=== PATIENT | male | born 1950 | race Caucasian/White ===

== ENCOUNTER → 2016-06-27 | Outpatient (CLI) | payer MEDICARE, OTHER ==
[~2016-06-27] MED LIST: AMLO-320 PO; AMLO10TA PO; ASP325T PO; ASP81TEC PO; ATOR80TA75 PO; BPR150TCR PO; BUPR300T2 PO; CITA40TA19 PO; CLIN300C3 PO; CLOP75TA PO; CTLP20T PO; HCT25T PO; HYDR-3454 PO; HYDR25TA4 PO; LEVO500T69 PO; LISI1TAB8 PO; LISI20TA PO; METF-380 PO; METO100T2 PO; MTF500T PO; NFNEB10T PO; ONDA8TAB13 PO; PGLT30T PO; SIMV20TA3 PO; THIA100T7 PO; TRAM50TA2 PO; VALS1TAB15 PO
== END ==
LOC: RAD 11:49
PROVIDERS: ATTEND Nurse Practitioner Family
DX: I73.9 Peripheral vascular disease, unspecified (principal)
CPT/HCPCS: 93923

== ENCOUNTER → 2017-03-16 | Outpatient (CLI) | payer MEDICARE, OTHER | LOC: CARD 09:16 | PROVIDERS: ATTEND Nurse Practitioner Family | DX: I25.10 Atherosclerotic heart disease of native coronary artery without angina pectoris (principal); I10 Essential (primary) hypertension | CPT/HCPCS: 93306 ==

== ENCOUNTER → 2017-03-20 | Outpatient (CLI) | payer MEDICARE, OTHER ==
[~2017-03-20] MED LIST changes: +CATHETER FLUSH 10 ML SYR IV PRN
[2017-03-20 09:18] VITALS: BP 173/88
[2017-03-20 09:31] VITALS: BP 188/75
--- NOTE | 2017-03-21 07:09 | STRESS TEST ---
DATE OF SERVICE: 03/20/2017 RESTING AND POST-EXERCISE TECHNETIUM-99M TETROFOSMIN SPECT CT IMAGING PROCEDURE: Resting and post-exercise technetium-99m Tetrofosmin SPECT CT imaging. ORDERING PHYSICIAN: Olena Pak APRN PRIMARY CARE PHYSICIAN: Dr. Matute. ORDERING PHYSICIAN: Sharlene Ching MD, MA, FACP, FACC CLINICAL DIAGNOSES: Coronary artery disease, hypertension. Baseline images were carried out after injection of 10.93 mCi technetium-99m tetrofosmin. We carried out exercise on a treadmill. Mustapha protocol was employed. There was considerable baseline artifact with exercise. Thus, the electrocardiogram is not suitable for interpretation of the ST segments. Test was stopped on account of fatigue. Heart rate and blood pressure responses to exercise were normal to somewhat hypertensive. He did not report chest discomfort. He exercised for 7 minutes and 40 seconds. He attained 9.3 METS of workload and 106% of maximum predicted heart rate. Review of images at rest and following stress does not indicate any significant perfusion defects consistent with significant myocardial ischemia or infarction. Gated images show normal global left ventricular systolic function with normal regional wall motion. Left ventricular ejection fraction is calculated to be 69%. CONCLUSIONS: 1. No evidence of significant myocardial ischemia or infarction on this study. 2. Normal regional wall motion. 3. Normal global left ventricular systolic function with a calculated ejection fraction of 67%. Job ID: [id number] DocumentID: [id number] Dictated Date: 03/20/2017 14:19:42 [place] [employer] Professor Date: 03/20/2017 23:16:05 Dictated By: SHARLENE CHING MD, MA, FACP, FACC,
== END ==
LOC: CARD 07:15
PROVIDERS: ATTEND Nurse Practitioner Family
DX: I25.10 Atherosclerotic heart disease of native coronary artery without angina pectoris (principal); I10 Essential (primary) hypertension
CPT/HCPCS: 78452; 93017

== ENCOUNTER 2017-07-31 19:26 | Observation (INO) | payer MEDICARE, OTHER ==
[~2017-07-31] VITALS: Ht 185.4 cm; Wt 100.3 kg
[~2017-07-31 19:26] MED LIST changes: -CATHETER FLUSH 10 ML SYR IV PRN
--- OUTSIDE RECORDS SUMMARY | 2017-07-31 19:31 | XMS REPORT | Continuity of Care Document ---
Author Author [facility] Organization [facility] Address Unknown Phone Unavailable Allergies Active Description Code Type Severity Reaction Onset Reported/Identified Relationship to Patient Clinical Status Yes codeine [id number] Drug Allergy Unknown N/A 02/11/2011 Yes Penicillins [id number] Drug Allergy Unknown N/A 02/11/2011 Medications There is no data. Problems Date Dx Coded Attending Type Code Diagnosis Diagnosed By 02/13/2011 Ot 250.00 DIAB VENKATESH WO COMPL, TYPE II OR UNSPEC TY 02/13/2011 Ot 272.4 HYPERLIPIDEMIA NEC/NOS 02/13/2011 Ot 414.01 CORONARY ATHEROSCLEROSIS OF [place] CORON 02/13/2011 Ot 491.9 CHRONIC BRONCHITIS NOS 02/13/2011 Ot 784.0 HEADACHE 02/13/2011 Ot 786.59 CHEST PAIN NEC 02/13/2011 Ot V10.83 HX-SKIN MALIGNANCY NEC 02/13/2011 Ot V12.72 PERSONAL HISTORY OF COLONIC POLYPS 02/13/2011 Ot V15.82 HISTORY OF TOBACCO USE 02/13/2011 Ot V58.69 OTH MED,LT, CURRENT USE 02/13/2011 Ot V85.30 BODY MASS INDEX 30.0-30.9, ADULT 05/18/2013 SHELLEY FINN Ot 681.00 CELLULITIS, FINGER NOS 05/18/2013 SHELLEY FINN Ot 883.1 OPEN WOUND FINGER-COMPL 05/18/2013 SHELLEY FINN Ot E000.8 OTHER EXTERNAL CAUSE STATUS 05/18/2013 SHELLEY FINN Ot E849.0 ACCIDENT IN HOME 05/18/2013 SHELLEY FINN Ot E906.0 DOG BITE 05/18/2013 SHELLEY FINN Ot V06.1 [id number], COMBINED [ 06/25/2013 HUMZA CLEMENTS FACC, KANDI VIRAMONTESP CCDS Ot 250.00 DIAB VENKATESH WO COMPL, TYPE II OR UNSPEC TY 06/25/2013 HUMAZ CLEMENTS FACC, ALI FACP CCDS Ot 272.4 HYPERLIPIDEMIA NEC/NOS 06/25/2013 HUMZA CLEMENTS FACC, ALI FACP CCDS Ot 300.4 DYSTHYMIC DISORDER 06/25/2013 HUMZA CLEMENTS FACC, ALI FACP CCDS Ot 401.9 HYPERTENSION NOS 06/25/2013 HUMZA CLEMENTS FACC, ALI FACP CCDS Ot 414.01 CORONARY ATHEROSCLEROSIS OF [place] CORON 06/25/2013 HUMZA CLEMENTS FACC, KANDI FACP CCDS Ot 785.1 PALPITATIONS 06/25/2013 HUMZA CLEMENTS FACC, ALI FACP CCDS Ot 786.59 CHEST PAIN NEC 06/25/2013 HUMZA CLEMENTS FACC, ALI FACP CCDS Ot V15.82 HISTORY OF TOBACCO USE 06/25/2013 HUMZA CLEMENTS FACC, KANDI FACP CCDS Ot V58.69 OTH MED,LT,CURRENT USE 06/28/2013 HUMZA CLEMENTS FACC, ALI FACP CCDS Ot 250.00 DIAB VENKATESH WO COMPL, TYPE II OR UNSPEC TY 06/28/2013 HUMZA CLEMENTS FACC, ALI FACP CCDS Ot 272.4 HYPERLIPIDEMIA NEC/NOS 06/28/2013 HUMZA CLEMENTS FACC, ALI FACP CCDS Ot 278.00 OBESITY, NOS 06/28/2013 HUMZA CLEMENTS FACC, ALI FACP CCDS Ot 300.00 ANXIETY STATE NOS 06/28/2013 HUMZA CLEMENTS FACC, ALI FACP CCDS Ot 401.9 HYPERTENSION NOS 06/28/2013 HUMZA CLEMENTS FACC, ALI FACP CCDS Ot 414.01 CORONARY ATHEROSCLEROSIS OF [place] CORON 06/28/2013 HUMZA CLEMENTS FACC, KANDI FACP CCDS Ot 442.3 LOWER EXTREMITY ANEURYSM 06/28/2013 HUMZA CLEMENTS FACC, ALI FACP CCDS Ot 722.4 CERVICAL DISC DEGEN 06/28/2013 HUMZA CLEMENTS FACC, ALI FACP CCDS Ot 782.1 NONSPECIF SKIN ERUPT NEC 06/28/2013 HUMZA CLEMENTS FACC, ALI FACP CCDS Ot 786.50 CHEST PAIN NOS 06/28/2013 HUMZA CLEMENTS FACC, ALI FACP CCDS Ot 997.2 SURG COMP-SAURABH VASC SYST 06/28/2013 HUMZA CLEMENTS FACC, ALI FACP CCDS Ot V15.82 HISTORY OF TOBACCO USE 06/28/2013 HUMZA CLEMENTS FACC, ALI FACP CCDS Ot V17.3 FAM HX-ISCHEM HEART DIS 06/28/2013 HUMZA CLEMENTS FAC, KANDI FACP CCDS Ot V45.89 POSTSURGICAL STATES NEC 06/28/2013 HUMZA CLEMENTS FAC, KANDI FACP CCDS Ot V85.32 BODY MASS INDEX 32.0-32.9, ADULT 04/29/2014 ROXANA CLEMENTS, BISI Coreas Ot 250.00 DIAB VENKATESH WO COMPL, TYPE II OR UNSPEC TY 04/29/2014 ROXANA CLEMENTS, BISI Coreas Ot 414.01 CORONARY ATHEROSCLEROSIS OF [place] CORON 04/29/2014 ROXANA CLEMENTS, BISI Coreas Ot 550.90 UNILAT INGUINAL HERNIA 04/29/2014 ROXANA CLEMENTS, BISI Coreas Ot V58.69 OT MED,LT,CURRENT USE 01/06/2015 BAIMA, BHASKAR L AEROLOGIST Ot E78.5 01/06/2015 BAIMA, BHASKAR L AEROLOGIST Ot I10 01/06/2015 BAIMA, BHASKAR L AEROLOGIST Ot I25.10 01/06/2015 BAIMA, BHASKAR L AEROLOGIST Ot R07.89 02/01/2015 BAIMA, BHASKAR L AEROLOGIST Ot E78.5 02/01/2015 BAIMA, BHASKAR L AEROLOGIST Ot I10 02/01/2015 BAIMA, BHASKAR L AEROLOGIST Ot I25.10 02/01/2015 BAIMA, BHASKAR L AEROLOGIST Ot R07.89 06/27/2016 Ot 722.4 CERVICAL DISC DEGEN 06/27/2016 BAIMA, BHASKAR L AEROLOGIST Ot 272.4 HYPERLIPIDEMIA NEC/NOS 06/27/2016 BAIMA, BHASKAR L AEROLOGIST Ot 401.9 HYPERTENSION NOS 06/27/2016 BAIMA, BHASKAR L AEROLOGIST Ot 414.00 CORON ATHEROSCLER NOS TYPE VESSEL, NATIV 06/27/2016 BAIMA, BHASKAR L AEROLOGIST Ot 443.9 PERIPH VASCULAR DIS NOS 06/27/2016 BAIMA, BHASKAR L AEROLOGIST Ot 785.1 PALPITATIONS 06/27/2016 BAIMA, BHASKAR L AEROLOGIST Ot 786.59 CHEST PAIN NEC 06/27/2016 BAIMA, BHASKAR L AEROLOGIST Ot 272.4 HYPERLIPIDEMIA NEC/NOS 06/27/2016 BAIMA, BHASKAR L AEROLOGIST Ot 401.9 HYPERTENSION NOS 06/27/2016 BAIMA, BHASKAR L AEROLOGIST Ot 414.00 CORON ATHEROSCLER NOS TYPE VESSEL, NATIV 06/27/2016 BAIMA, BHASKAR L AEROLOGIST Ot 443.9 PERIPH VASCULAR DIS NOS 06/27/2016 BAIMA, BHASKAR L AEROLOGIST Ot 785.1 PALPITATIONS 06/27/2016 BAIMA, BHASKAR L AEROLOGIST Ot 272.4 HYPERLIPIDEMIA NEC/NOS 06/27/2016 BAIMA, BHASKAR L AEROLOGIST Ot 401.9 HYPERTENSION NOS 06/27/2016 BAIMA, BHASKAR L AEROLOGIST Ot 414.00 CORON ATHEROSCLER NOS TYPE VESSEL, NATIV 06/27/2016 BAIMA, BHASKAR L AEROLOGIST Ot 442.3 LOWER EXTREMITY ANEURYSM 06/27/2016 BAIMA, BHASKAR L AEROLOGIST Ot 789.03 ABDOMINAL PAIN, RIGHT LOWER QUADRANT 06/27/2016 ROXANA CLEMENTS, BISI Coreas Ot 550.90 UNILAT INGUINAL HERNIA 06/27/2016 ROXANA CLEMENTS, BISI Coreas Ot V72.63 PRE-PROCEDURAL LABORATORY EXAMINATION 06/27/2016 ROXANA CLEMENTS, BISI Coreas Ot V74.8 SCREEN-BACTERIAL DIS NEC 06/27/2016 BAIMA, BHASKAR L AEROLOGIST Ot E78.5 HYPERLIPIDEMIA, UNSPECIFIED 06/27/2016 BAIMA, BHASKAR L AEROLOGIST Ot I10 ESSENTIAL (PRIMARY) HYPERTENSION 06/27/2016 BAIMA, BHASKAR L AEROLOGIST Ot I25.10 ATHSCL HEART DISEASE OF [place] CORONARY 06/27/2016 BAIMA, BHASKAR L AEROLOGIST Ot R07.89 OTHER CHEST PAIN 06/27/2016 BAIMA, BHASKAR L AEROLOGIST Ot E78.5 HYPERLIPIDEMIA, UNSPECIFIED 06/27/2016 BAIMA, BHASKAR L AEROLOGIST Ot I10 ESSENTIAL (PRIMARY) HYPERTENSION 06/27/2016 BAIMA, BHASKAR L AEROLOGIST Ot I25.10 ATHSCL HEART DISEASE OF [place] CORONARY 06/27/2016 BAIMA, BHASKAR L AEROLOGIST Ot R07.89 OTHER CHEST PAIN 06/27/2016 BAIMA, BHASKAR L AEROLOGIST Ot I73.9 PERIPHERAL VASCULAR DISEASE, UNSPECIFIED 06/27/2016 BAIMA, BHASKAR L AEROLOGIST Ot I73.9 PERIPHERAL VASCULAR DISEASE, UNSPECIFIED 06/28/2016 BAIMA, BHASKAR L AEROLOGIST Ot I73.9 PERIPHERAL VASCULAR DISEASE, UNSPECIFIED 07/24/2016 BAIMA, BHASKAR L AEROLOGIST Ot I73.9 PERIPHERAL VASCULAR DISEASE, UNSPECIFIED 03/14/2017 Ot 722.4 CERVICAL DISC DEGEN 03/14/2017 BAIMA, BHASKAR L AEROLOGIST Ot 272.4 HYPERLIPIDEMIA NEC/NOS 03/14/2017 BAIMA, BHASKAR L AEROLOGIST Ot 401.9 HYPERTENSION NOS 03/14/2017 BAIMA, BHASKAR L AEROLOGIST Ot 414.00 CORON ATHEROSCLER NOS TYPE VESSEL, NATIV 03/14/2017 BAIMA, BHASKAR L AEROLOGIST Ot 443.9 PERIPH VASCULAR DIS NOS 03/14/2017 BAIMA, BHASKAR L AEROLOGIST Ot 785.1 PALPITATIONS 03/14/2017 BAIMA, BHASKAR L AEROLOGIST Ot 786.59 CHEST PAIN NEC 03/14/2017 BAIMA, BHASKAR L AEROLOGIST Ot 272.4 HYPERLIPIDEMIA NEC/NOS 03/14/2017 BAIMA, BHASKAR L AEROLOGIST Ot 401.9 HYPERTENSION NOS 03/14/2017 BAIMA, BHASKAR L AEROLOGIST Ot 414.00 CORON ATHEROSCLER NOS TYPE VESSEL, NATIV 03/14/2017 BAIMA, BHASKAR L AEROLOGIST Ot 443.9 PERIPH VASCULAR DIS NOS 03/14/2017 BAIMA, BHASKAR L AEROLOGIST Ot 785.1 PALPITATIONS 03/14/2017 BAIMA, BHASKAR L AEROLOGIST Ot 272.4 HYPERLIPIDEMIA NEC/NOS 03/14/2017 BAIMA, BHASKAR L AEROLOGIST Ot 401.9 HYPERTENSION NOS 03/14/2017 BAIMA, BHASKAR L AEROLOGIST Ot 414.00 CORON ATHEROSCLER NOS TYPE VESSEL, NATIV 03/14/2017 BAIMA, BHASKAR L AEROLOGIST Ot 442.3 LOWER EXTREMITY ANEURYSM 03/14/2017 BAIMA, BHASKAR L AEROLOGIST Ot 789.03 ABDOMINAL PAIN, RIGHT LOWER QUADRANT 03/14/2017 ROXANA CLEMENTS, BISI Coreas Ot 550.90 UNILAT INGUINAL HERNIA 03/14/2017 ROXANA CLEMENTS, BISI Coreas Ot V72.63 PRE-PROCEDURAL LABORATORY EXAMINATION 03/14/2017 ROXANA CLEMENTS, BISI Coreas Ot V74.8 SCREEN-BACTERIAL DIS NEC 03/14/2017 BAIMA, BHASKAR L AEROLOGIST Ot E78.5 HYPERLIPIDEMIA, UNSPECIFIED 03/14/2017 BAIMA, BHASKAR L AEROLOGIST Ot I10 ESSENTIAL (PRIMARY) HYPERTENSION 03/14/2017 BAIMA, BHASKAR L AEROLOGIST Ot I25.10 ATHSCL HEART DISEASE OF [place] CORONARY 03/14/2017 BAIMA, BHASKAR L AEROLOGIST Ot R07.89 OTHER CHEST PAIN 03/14/2017 BAIMA, BHASKAR L AEROLOGIST Ot E78.5 HYPERLIPIDEMIA, UNSPECIFIED 03/14/2017 BAIMA, BHASKAR L AEROLOGIST Ot I10 ESSENTIAL (PRIMARY) HYPERTENSION 03/14/2017 BAIMA, BHASKAR L AEROLOGIST Ot I25.10 ATHSCL HEART DISEASE OF [place] CORONARY 03/14/2017 BAIMA, BHASKAR L AEROLOGIST Ot R07.89 OTHER CHEST PAIN 03/14/2017 BAIMA, BHASKAR L AEROLOGIST Ot I73.9 PERIPHERAL VASCULAR DISEASE, UNSPECIFIED 03/19/2017 BAIMA, BHASKAR L AEROLOGIST Ot I10 ESSENTIAL (PRIMARY) HYPERTENSION 03/19/2017 BAIMA, BHASKAR L AEROLOGIST Ot I25.10 ATHSCL HEART DISEASE OF [place] CORONARY 03/21/2017 BAIMA, BHASKAR L AEROLOGIST Ot I10 ESSENTIAL (PRIMARY) HYPERTENSION 03/21/2017 BAIMA, BHASKAR L AEROLOGIST Ot I25.10 ATHSCL HEART DISEASE OF [place] CORONARY 03/22/2017 BAIMA, BHASKAR L AEROLOGIST Ot I10 ESSENTIAL (PRIMARY) HYPERTENSION 03/22/2017 BAIMA, BHASKAR L AEROLOGIST Ot I25.10 ATHSCL HEART DISEASE OF [place] CORONARY 04/10/2017 BAIMA, BHASKAR L AEROLOGIST Ot I10 ESSENTIAL (PRIMARY) HYPERTENSION 04/10/2017 BAIMA, BHASKAR L AEROLOGIST Ot I25.10 ATHSCL HEART DISEASE OF [place] CORONARY 04/12/2017 BAIMA, BHASKAR L AEROLOGIST Ot I10 ESSENTIAL (PRIMARY) HYPERTENSION 04/12/2017 BAIMA, BHASKAR L AEROLOGIST Ot I25.10 ATHSCL HEART DISEASE OF [place] CORONARY 04/26/2017 BAIMA, BHASKAR L AEROLOGIST Ot I10 ESSENTIAL (PRIMARY) HYPERTENSION 04/26/2017 BAIMA, BHASKAR L AEROLOGIST Ot I25.10 ATHSCL HEART DISEASE OF [place] CORONARY 05/04/2017 BAIMA, BHASKAR L AEROLOGIST Ot I10 ESSENTIAL (PRIMARY) HYPERTENSION 05/04/2017 BAIMA, BHASKAR L AEROLOGIST Ot I25.10 ATHSCL HEART DISEASE OF [place] CORONARY 05/04/2017 BAIMA, BHASKAR L AEROLOGIST Ot I10 ESSENTIAL (PRIMARY) HYPERTENSION 05/04/2017 BAIMA, BHASKAR L AEROLOGIST Ot I25.10 ATHSCL HEART DISEASE OF [place] CORONARY 05/04/2017 BAIMA, BHASKAR L AEROLOGIST Ot 272.4 HYPERLIPIDEMIA NEC/NOS 05/04/2017 BAIMA, BHASKAR L AEROLOGIST Ot 401.9 HYPERTENSION NOS 05/04/2017 BAIMA, BHASKAR L AEROLOGIST Ot 414.00 CORON ATHEROSCLER NOS TYPE VESSEL, NATIV 05/04/2017 BAIMA, BHASKAR L AEROLOGIST Ot 443.9 PERIPH VASCULAR DIS NOS 05/04/2017 BAIMA, BHASKAR L AEROLOGIST Ot 785.1 PALPITATIONS 05/04/2017 BAIMA, BHASKAR L AEROLOGIST Ot 786.59 CHEST PAIN NEC 05/04/2017 BAIMA, BHASKAR L AEROLOGIST Ot 272.4 HYPERLIPIDEMIA NEC/NOS 05/04/2017 BAIMA, BHASKAR L AEROLOGIST Ot 401.9 HYPERTENSION NOS 05/04/2017 BAIMA, BHASKAR L AEROLOGIST Ot 414.00 CORON ATHEROSCLER NOS TYPE VESSEL, NATIV 05/04/2017 BAIMA, BHASKAR L AEROLOGIST Ot 443.9 PERIPH VASCULAR DIS NOS 05/04/2017 BAIMA, BHASKAR L AEROLOGIST Ot 785.1 PALPITATIONS 05/04/2017 BAIMA, BHASKAR L AEROLOGIST Ot 272.4 HYPERLIPIDEMIA NEC/NOS 05/04/2017 BAIMA, BHASKAR L AEROLOGIST Ot 401.9 HYPERTENSION NOS 05/04/2017 BAIMA, BHASKAR L AEROLOGIST Ot 414.00 CORON ATHEROSCLER NOS TYPE VESSEL, NATIV 05/04/2017 BAIMA, BHASKAR L AEROLOGIST Ot 442.3 LOWER EXTREMITY ANEURYSM 05/04/2017 BAIMA, BHASKAR L AEROLOGIST Ot 789.03 ABDOMINAL PAIN, RIGHT LOWER QUADRANT 05/04/2017 ROXANA CLEMENTS, BISI Coreas Ot 550.90 UNILAT INGUINAL HERNIA 05/04/2017 ROXANA CLEMENTS, BISI Coreas Ot V72.63 PRE-PROCEDURAL LABORATORY EXAMINATION 05/04/2017 ROXANA CLEMENTS, BISI Coreas Ot V74.8 SCREEN-BACTERIAL DIS NEC 05/04/2017 BAIMA, BHASKAR L AEROLOGIST Ot E78.5 HYPERLIPIDEMIA, UNSPECIFIED 05/04/2017 BAIMA, BHASKAR L AEROLOGIST Ot I10 ESSENTIAL (PRIMARY) HYPERTENSION 05/04/2017 BAIMA, BHASKAR L AEROLOGIST Ot I25.10 ATHSCL HEART DISEASE OF [place] CORONARY 05/04/2017 BAIMA, BHASKAR L AEROLOGIST Ot R07.89 OTHER CHEST PAIN 05/04/2017 BAIMA, BHASKAR L AEROLOGIST Ot E78.5 HYPERLIPIDEMIA, UNSPECIFIED 05/04/2017 BAIMA, BHASKAR L AEROLOGIST Ot I10 ESSENTIAL (PRIMARY) HYPERTENSION 05/04/2017 BAIMA, BHASKAR L AEROLOGIST Ot I25.10 ATHSCL HEART DISEASE OF [place] CORONARY 05/04/2017 BAIMA, BHASKAR L AEROLOGIST Ot R07.89 OTHER CHEST PAIN 05/04/2017 BAIMA, BHASKAR L AEROLOGIST Ot I73.9 PERIPHERAL VASCULAR DISEASE, UNSPECIFIED 05/04/2017 BAIMA, BHASKAR L AEROLOGIST Ot I10 ESSENTIAL (PRIMARY) HYPERTENSION 05/04/2017 BAIMA, BHASKAR L AEROLOGIST Ot I25.10 ATHSCL HEART DISEASE OF [place] CORONARY 05/04/2017 BAIMA, BHASKAR L AEROLOGIST Ot I10 ESSENTIAL (PRIMARY) HYPERTENSION 05/04/2017 BAIMA, BHASKAR L AEROLOGIST Ot I25.10 ATHSCL HEART DISEASE OF [place] CORONARY Procedures There is no data. Results There is no data. Encounters ACCT No. Visit Date/Time Discharge Status Pt. Type Provider Facility Loc./Unit Complaint [id number] 03/20/2017 07:15:00 03/20/2017 23:59:59 CLS Outpatient BAIMA, BHASKAR L AEROLOGIST [facility] CARD CAD [id number] 03/16/2017 09:16:00 03/16/2017 23:59:59 CLS Outpatient BAIMA, BHASKAR L AEROLOGIST [facility] CARD HTN [id number] 06/27/2016 11:49:00 06/27/2016 23:59:59 CLS Outpatient BAIMA, BHASKAR L AEROLOGIST [facility] RAD I73.9 [id number] 12/24/2014 07:50:00 12/24/2014 23:59:59 CLS Outpatient BAIMA, BHASKAR L AEROLOGIST [facility] CARD CHEST DISCOMFORIT, CAD [id number] 12/17/2014 14:17:00 12/17/2014 23:59:59 CLS Outpatient BAIMA, BHASKAR L AEROLOGIST [facility] CARD CHEST DISCOMFORIT, CAD [id number] 04/29/2014 11:45:00 04/29/2014 23:59:59 CLS Outpatient ROXANA CLEMENTS, BISI Coreas [facility] SDC RIGHT INGUINAL HERNIA [id number] 04/24/2014 07:50:00 04/24/2014 23:59:59 CLS Outpatient ROXANA CLEMENTS, BISI Coreas [facility] PREOP RIGHT INGUINAL HERNIA [id number] 07/01/2013 13:50:00 07/01/2013 23:59:59 CLS Outpatient BHASKAR WARD L AEROLOGIST [facility] RAD RT GROIN [id number] 06/27/2013 11:11:00 06/28/2013 12:00:00 DIS Inpatient HUMZA CLEMENTS FACC, KANDI ORTA CCDS [facility] CSD PSEUDOANEURISM DT GROIN [id number] 06/24/2013 09:46:00 06/25/2013 10:25:00 DIS Outpatient HUMZA CLEMENTS FACAlondra, ALI YOU CCDS [facility] CATH CAD,ANGINA, HTN [id number] 05/18/2013 18:43:00 05/18/2013 20:21:00 DIS Emergency SHELLEY FINN [facility] ER INFECTED DOG BITE [id number] 02/20/2013 07:18:00 02/20/2013 23:59:59 CLS Outpatient BAIGINGER THRASHERHER L AEROLOGIST [facility] RAD CHEST DISCOMFORT,CAD, HTN,HLP,PALPIATIONS [id number] 02/17/2013 13:21:00 02/17/2013 23:59:59 CLS Outpatient BHASKAR WARD L AEROLOGIST [facility] RAD CLAUDICATION [id number] 11/09/2011 09:25:00 Document Registration [id number] 02/11/2011 14:00:00 Document Registration [id number] 12/17/2014 14:18:06 ACT Document Registration
[2017-07-31] MEDS ORDERED: ASPIRIN 81 MG CHEW (CHILDREN'S ASA) PO ONE (19:45)
[2017-07-31 19:53] LABS: BASOPHILS % (AUTO) 1 % (0-10); EOSINOPHILS # (AUTO) 0.1 10^3/uL (0.0-0.3); EOSINOPHILS % (AUTO) 1 % (0-10); HEMATOCRIT 44 % (40-54); LYMPHOCYTES # (AUTO) 3.5 X 10^3 (1.0-4.0); LYMPHOCYTES % (AUTO) 43 % (12-44); MEAN CORPUSCULAR HEMOGLOBIN 33 PG (25-34); MEAN CORPUSCULAR HGB CONC 34 G/DL (32-36); MEAN CORPUSCULAR VOLUME 98 FL (80-99); MEAN PLATELET VOLUME 10.6 FL (7.4-10.4); MONOCYTES % (AUTO) 13 % (0-12); NEUTROPHILS # (AUTO) 3.5 X 10^3 (1.8-7.8); NEUTROPHILS % (AUTO) 43 % (42-75); PLATELET COUNT 197 10^3/uL (130-400); RED CELL DISTRIBUTION WIDTH 13.7 % (10.0-14.5); WHITE BLOOD COUNT 8.2 10^3/uL (4.3-11.0)
[2017-07-31 20:09] LABS: INR 0.9 (0.8-1.4); PROTHROMBIN TIME PATIENT 11.8 SEC (12.2-14.7)
[2017-07-31 20:14] LABS: ALANINE AMINOTRANSFERASE 48 U/L (0-55); ALBUMIN 4.4 GM/DL (3.2-4.5); ALKALINE PHOSPHATASE 106 U/L (40-136); AMYLASE 48 U/L (25-125); BILIRUBIN,TOTAL 0.6 MG/DL (0.1-1.0); BUN/CREATININE RATIO 19; CALCIUM 9.9 MG/DL (8.5-10.1); CARBON DIOXIDE 26 MMOL/L (21-32); CHLORIDE 107 MMOL/L (98-107); CREATINE KINASE 58 U/L (30-200); CREATININE SERUM 1.08 MG/DL (0.60-1.30); GFR ESTIMATED > 60; GLUCOSE 137 MG/DL (70-105); LIPASE 26 U/L (8-78); MAGNESIUM 2.1 MG/DL (1.8-2.4); POTASSIUM 3.6 MMOL/L (3.6-5.0); SODIUM 145 MMOL/L (135-145); TOTAL PROTEIN 7.4 GM/DL (6.4-8.2)
[2017-07-31 20:20] LABS: CREATINE KINASE MB 0.6 NG/ML (<6.6)
--- NOTE | 2017-07-31 20:28 | Diagnostic Imaging Report ---
INDICATION: Chest pain COMPARISON: 02/11/2011 FINDINGS: Single view of the chest demonstrates stable cardiac enlargement. The lungs are otherwise clear. There is no pneumothorax. No large effusion seen. Stable nodules seen in the left lung base likely benign granuloma. Osseous structures normal. IMPRESSION: Stable cardiac enlargement without pulmonary edema or infiltrate Dictated by: Dictated on workstation # [id number]
[2017-07-31] MEDS ORDERED: NITROGLYCERIN 2% OINT 1 GM UNIT DOSE PACKET TOP ONE (20:45)
[2017-07-31] MEDS ORDERED: IOHEXOL 350 MG/ML 150 ML (OMNIPAQUE 350) VIAL IV ONE (20:45)
[2017-07-31] MEDS ORDERED: NS 100 ML (IVPB) BAG IV ONE (20:45)
--- NOTE | 2017-07-31 21:16 | Diagnostic Imaging Report ---
PROCEDURE: CT angiography of the chest with contrast. TECHNIQUE: Multiple contiguous axial images were obtained through the chest after uneventful bolus administration of intravenous contrast. Reconstructed CTA MIP acquisitions were also performed. INDICATION: Shoulder pain, chest pain, possible pulmonary embolism COMPARISON: None FINDINGS: There is mild cardiac enlargement without pericardial effusion. Coronary artery disease is present. There is no lymphadenopathy. There is no pulmonary embolism or acute aortic pathology. Central airways are normal. Senescent changes are seen in the lung bases. There is no acute infiltrate, effusion or pneumothorax. There is no consolidation. Osseous structures are age-appropriate. Visualized upper abdominal solid organs are grossly unremarkable. IMPRESSION: 1. Cardiac enlargement with coronary artery disease 2. No pulmonary embolism or acute aortic pathology. Dictated by: Dictated on workstation # [id number]
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
[2017-07-31 22:45] VITALS: BP 195/89
[2017-07-31 23:00] VITALS: BP 164/79
[2017-07-31 23:15] VITALS: BP 164/79
[2017-07-31] MEDS ORDERED: morphine INJ 4 MG/ML 1 ML (VIAL/SYRINGE) IV PRN (23:15)
[2017-07-31] MEDS ORDERED: NITROGLYCERIN 0.4 MG SL TABS BTL 25'S SL PRN (23:15)
[2017-07-31 23:30] VITALS: BP 160/96
[2017-08-01] VITALS: BP 166/80
[2017-08-01] MEDS: inSUlin ASPART (NovoLOG) 1 UNIT/0.01 ML (CHARGE PER UNIT) SC SCH ×2 (00:25→05:36)
[2017-08-01 01:00] VITALS: BP 157/79
[2017-08-01 02:00] VITALS: BP 134/71
[2017-08-01 02:23] LABS: MYOGLOBIN SERUM 41.9 NG/ML (10.0-92.0)
[2017-08-01 03:00] VITALS: BP 138/90
[2017-08-01] MEDS ORDERED: NITROGLYCERIN 2% OINT 1 GM UNIT DOSE PACKET TOP SCH (04:00)
[2017-08-01 06:57] LABS: BASOPHILS % (AUTO) 0 % (0-10); EOSINOPHILS # (AUTO) 0.1 10^3/uL (0.0-0.3); EOSINOPHILS % (AUTO) 1 % (0-10); HEMATOCRIT 41 % (40-54); LYMPHOCYTES % (AUTO) 40 % (12-44); MEAN CORPUSCULAR HEMOGLOBIN 34 PG (25-34); MEAN CORPUSCULAR HGB CONC 35 G/DL (32-36); MEAN CORPUSCULAR VOLUME 98 FL (80-99); MEAN PLATELET VOLUME 11.1 FL (7.4-10.4); MONOCYTES # (AUTO) 0.8 X 10^3 (0.0-1.0); MONOCYTES % (AUTO) 10 % (0-12); NEUTROPHILS # (AUTO) 3.7 X 10^3 (1.8-7.8); NEUTROPHILS % (AUTO) 49 % (42-75); PLATELET COUNT 169 10^3/uL (130-400); RED BLOOD COUNT 4.13 10^6/uL (4.35-5.85); RED CELL DISTRIBUTION WIDTH 13.5 % (10.0-14.5); WHITE BLOOD COUNT 7.5 10^3/uL (4.3-11.0)
[2017-08-01 07:15] LABS: ALANINE AMINOTRANSFERASE 42 U/L (0-55); ALBUMIN 3.9 GM/DL (3.2-4.5); ALKALINE PHOSPHATASE 85 U/L (40-136); BILIRUBIN,TOTAL 0.7 MG/DL (0.1-1.0); BUN/CREATININE RATIO 28; CALCIUM 9.1 MG/DL (8.5-10.1); CARBON DIOXIDE 26 MMOL/L (21-32); CHLORIDE 109 MMOL/L (98-107); CHOLESTEROL 98 MG/DL (< 200); GFR ESTIMATED > 60; GLUCOSE 136 MG/DL (70-105); HDL CHOLESTEROL 37 MG/DL (40-60); POTASSIUM 3.7 MMOL/L (3.6-5.0); SODIUM 144 MMOL/L (135-145); TOTAL PROTEIN 6.5 GM/DL (6.4-8.2); TRIGLYCERIDES 85 MG/DL (<150); VLDL CHOLESTEROL 17 MG/DL (5-40)
[2017-08-01 08:50] VITALS: BP 155/74
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
[2017-08-01] MEDS ORDERED: ASPIRIN E.C. 325 MG (ECOTRIN) TABLET PO SCH (09:00)
[2017-08-01] MEDS ORDERED: CYAN500T2 PO (09:36)
[2017-08-01] MEDS ORDERED: AMLO1CAP9 PO (09:36)
[2017-08-01] MEDS ORDERED: GLIP10TA13 PO ×2 (09:36)
[2017-08-01] MEDS ORDERED: PIOG45TA7 PO (09:36)
[2017-08-01 10:10] VITALS: BP 155/74
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
== END 2017-08-01 09:10 | disposition home or self-care (01) ==
LOC: EDUNIT# 19:26 → ER 19:28 → 4TH 21:48 → UNDOADMOB 21:48 → 4TH 22:35 → UNDODISOB 08-01 10:10
PROVIDERS: ADMIT Internal Medicine; ATTEND Internal Medicine
DX: R07.89 Other chest pain (principal); M79.602 Pain in left arm; M50.30 Other cervical disc degeneration, unspecified cervical region; I25.10 Atherosclerotic heart disease of native coronary artery without angina pectoris; I10 Essential (primary) hypertension; E78.5 Hyperlipidemia, unspecified; E11.9 Type 2 diabetes mellitus without complications; I65.23 Occlusion and stenosis of bilateral carotid arteries; Z87.891 Personal history of nicotine dependence; Z79.82 Long term (current) use of aspirin; Z79.84 Long term (current) use of oral hypoglycemic drugs; Z79.899 Other long term (current) drug therapy
CPT/HCPCS: 36415; 71045; 71275; 80053; 80061; 82150; 82550; 82553; 82962; 83690; 83735; 83874; 83880; 84484; 85025; 85610; 85730; 93005; 93041; G0378

== ENCOUNTER 2018-05-30 10:57 | Outpatient (RCR) | payer MEDICARE, OTHER ==
[~2018-05-30 10:57] MED LIST changes: +AMLO1CAP9 PO; +CYAN500T2 PO; +GLIP10TA13 PO; +PIOG45TA7 PO
== END 2018-05-30 11:41 | disposition home or self-care (01) ==
PROVIDERS: ATTEND Internal Medicine
DX: M54.2 Cervicalgia (principal)

== ENCOUNTER 2018-09-29 09:33 | Emergency (ER) | payer MEDICARE, OTHER ==
[~2018-09-29] VITALS: Ht 180.3 cm; Wt 104.3 kg
[2018-09-29] MEDS ORDERED: CEFD300C3 PO (10:54)
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
[2018-09-29] MEDS ORDERED: DEXAMETHASONE 10 MG/ML (DECADRON) 1 ML VIAL IM ONE (11:00)
[2018-09-29 11:02] VITALS: BP 148/72
== END 2018-09-29 11:02 | disposition home or self-care (01) ==
LOC: EDUNIT# 09:33 → ER 09:35
DX: J02.9 Acute pharyngitis, unspecified (principal); J32.9 Chronic sinusitis, unspecified; I10 Essential (primary) hypertension; E78.00 Pure hypercholesterolemia, unspecified; E11.9 Type 2 diabetes mellitus without complications; Z80.0 Family history of malignant neoplasm of digestive organs; Z88.0 Allergy status to penicillin; Z88.5 Allergy status to narcotic agent; Z79.82 Long term (current) use of aspirin; Z79.84 Long term (current) use of oral hypoglycemic drugs; Z87.891 Personal history of nicotine dependence; Z90.89 Acquired absence of other organs; Z82.49 Family history of ischemic heart disease and other diseases of the circulatory system
CPT/HCPCS: 96372; 99284

== ENCOUNTER 2019-03-28 00:10 | Emergency (ER) | payer MEDICARE, OTHER ==
[~2019-03-28] VITALS: Ht 180 cm; Wt 100.4 kg
[~2019-03-28 00:10] MED LIST changes: +AMLO-66 PO; -AMLO1CAP9 PO; +CEFD300C3 PO; -CYAN500T2 PO; +CYAN500T62 PO
[2019-03-28] MEDS ORDERED: MOUT1KIT2 (00:23)
[2019-03-28] MEDS ORDERED: VALA1000 (00:23)
[2019-03-28 00:29] LABS: BILIRUBIN,URINE NEGATIVE (NEGATIVE); CLARITY,URINE CLEAR; COLOR,URINE YELLOW; GLUCOSE, URINE (UA) NEGATIVE (NEGATIVE); KETONES,URINE TRACE (NEGATIVE); LEUKOCYTE ESTERASE ,URINE NEGATIVE (NEGATIVE); NITRITE,URINE NEGATIVE (NEGATIVE); PROTEIN,URINE 3+ (NEGATIVE)
[2019-03-28] MEDS ORDERED: ONDANSETRON 4 MG (ZOFRAN) ORAL DISSOLVE TAB PO ONE (00:30)
[2019-03-28] MEDS ORDERED: KETOROLAC 60 MG/2 ML VIAL IM ONE (00:30)
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
[2019-03-28 00:45] LABS: BACTERIA,URINE FEW /HPF; RBC,URINE 25-50 /HPF; SQUAMOUS EPITHELIAL CELL,UR 0-2 /HPF; WBC,URINE RARE /HPF
[2019-03-28] MEDS ORDERED: cefTRIAXone 1,000 MG/2.86 ml vial (IM ONLY) IM ONE (02:15)
[2019-03-28] MEDS ORDERED: LIDOCAINE 1% INJ 20 ML 20 ML VIAL INJ ONE (02:15)
[2019-03-28] MEDS ORDERED: CEFD300C3 PO (02:26)
[2019-03-28] MEDS ORDERED: ONDA4TAB11 PO (02:26)
[2019-03-28] MEDS ORDERED: ACHD5005 PO (02:26)
[2019-03-28 02:30] VITALS: BP 166/80
--- NOTE | 2019-03-28 10:25 | Diagnostic Imaging Report ---
PROCEDURE: CT urinary tract, rule out kidney stone. TECHNIQUE: Multiple contiguous axial images were obtained through the abdomen and pelvis without the use of intravenous contrast. Auto Exposure Controls were utilized during the CT exam to meet ALARA standards for radiation dose reduction. INDICATION: Low back pain. Evaluate for kidney stone. COMPARISON: None available. FINDINGS: There is mild bibasilar subsegmental dependent atelectasis in both lower lobes. The heart is top normal in size. Coronary artery calcifications are demonstrated. There is a benign calcified granuloma in the lingula. There is an additional 4 mm pulmonary nodule in the lingula as well as a 4 mm subpleural nodule in the right lower lobe (images 10 and 11 series 2). These are not significantly changed dating back to 2010 and presumed benign. The liver is unremarkable. The gallbladder is contracted, limiting evaluation. There is no calcified gallstone or biliary ductal dilatation. There is a punctate benign calcified granuloma in the spleen. Spleen is otherwise unremarkable. There is a right adrenal nodule which measures up to 1.5 cm and does not appear significantly changed dating back to 2010, felt to represent a benign adenoma. The left adrenal gland is normal. There is a 1.6 cm rounded low-density lesion in the pancreatic head/uncinate process. There is no pancreatic ductal dilatation. There is an unchanged cyst in the upper pole of the right kidney. There is a subcentimeter focus of low-attenuation in the right interpolar region, which is too small to characterize but also likely represents a cyst. There is marked bilateral perinephric stranding, without discrete perinephric collection. There is no hydronephrosis on either side. There is a punctate nonobstructing calyceal calculus in the upper pole of the left kidney. The stomach is not well distended. There is apparent mild thickening in the gastric fundus. There is no bowel obstruction or focal inflammatory change involving the bowel. There is colonic diverticulosis, without evidence of acute diverticulitis. The appendix is normal. There is no pneumoperitoneum, abdominal free fluid, or loculated collection. No lymphadenopathy is appreciated. The bladder is decompressed, limiting evaluation. The prostate gland is mildly enlarged. There is moderate calcified atherosclerotic plaque involving the abdominal aorta, without aneurysmal dilatation. The abdominal wall is unremarkable. There is a small fat-containing left inguinal hernia. No acute osseous abnormality is appreciated. Multilevel degenerative changes involve the spine. IMPRESSION: There is moderate bilateral perinephric stranding, which is nonspecific and may be related to prior infection/scarring. Evaluation for infection is limited given the lack of IV contrast and infection/pyelonephritis should be excluded on a clinical basis. There is a nonobstructing calyceal calculus on the left. There is no hydronephrosis on either side. There is a nonspecific cystic structure in the pancreatic head/uncinate process which is indeterminate based on today's exam. Differential diagnostic considerations include benign or low-grade neoplasm such as side-branch intraductal papillary mucinous neoplasm and non-neoplastic cyst. A follow-up MRI pancreas is suggested in one year to demonstrate stability, per ACR Incidental Findings Committee white paper recommendations for management of incidental pancreatic cysts (JACR 2017;14:911-923). There is a right adrenal nodule, which has not changed significantly in size dating back to 2010 and likely represents a benign adenoma. Stable pulmonary nodules in the lingula and left lower lobe dating back to 2010 are presumed benign and no further follow-up is recommended. Findings are in agreement with initial teleradiology report. Dictated by: Dictated on workstation # [id number]
== END 2019-03-28 02:33 | disposition home or self-care (01) ==
LOC: EDUNIT# 00:10 → ER 00:12
DX: N12 Tubulo-interstitial nephritis, not specified as acute or chronic (principal); R91.1 Solitary pulmonary nodule; K86.9 Disease of pancreas, unspecified; I10 Essential (primary) hypertension; E11.9 Type 2 diabetes mellitus without complications; E78.00 Pure hypercholesterolemia, unspecified; Z88.0 Allergy status to penicillin; Z88.5 Allergy status to narcotic agent; Z79.82 Long term (current) use of aspirin; Z79.84 Long term (current) use of oral hypoglycemic drugs; Z87.891 Personal history of nicotine dependence; Z90.89 Acquired absence of other organs; Z80.0 Family history of malignant neoplasm of digestive organs; Z82.49 Family history of ischemic heart disease and other diseases of the circulatory system
CPT/HCPCS: 74176; 81000; 96372

== ENCOUNTER → 2019-08-29 | Outpatient (CLI) | payer MEDICARE, OTHER ==
[~2019-08-29] VITALS: Ht 180 cm; Wt 99.0 kg
[~2019-08-29] MED LIST changes: +ACHD5005 PO; +CATHETER FLUSH 10 ML SYR IV PRN; +MOUT1KIT2; +ONDA4TAB11 PO; +REGADENOSON 0.4 MG/5 ML SYR (LEXISCAN) IV ONE; +VALA10007
--- NOTE | 2019-09-02 14:43 | STRESS TEST ---
DATE OF SERVICE: 08/29/2019 RESTING AND POST REGADENOSON TECHNETIUM-99M TETROFOSMIN SPECT CT IMAGING ORDERING PHYSICIAN: Olena Pak APRN PRIMARY PHYSICIAN: Dr. Matute. CLINICAL DIAGNOSES: Coronary artery disease, hypertension, hyperlipidemia. Baseline images were carried out after injection of 10.77 mCi of technetium-99m Tetrofosmin. This was followed by 0.4 mg regadenoson and 32.1 mCi of technetium-99m Tetrofosmin. The electrocardiogram showed sinus rhythm at baseline. It did not change significantly with the regadenoson infusion. The patient tolerated the procedure well. Review of images at rest and following stress does not indicate significant perfusion defects consistent with myocardial ischemia or infarction. Gated images show normal global left ventricular systolic function with normal regional wall motion. Left ventricular ejection fraction is calculated to be 68%. Left ventricular end diastolic volume is 85 mL. TID is absent (1.05). CONCLUSIONS: 1. No evidence of any significant myocardial ischemia or infarction on this study. 2. Normal regional wall motion. 3. Normal global left ventricular systolic function with a calculated ejection fraction of 68%. Job ID: [id number] DocumentID: [id number] Dictated Date: 09/02/2019 14:35:19 Java Android Developer Date: 09/02/2019 14:42:44 Dictated By: KANDI CHING MD, MA, FACP, FACC,
== END ==
LOC: CARD 06:33
PROVIDERS: ATTEND Nurse Practitioner Family
DX: I25.10 Atherosclerotic heart disease of native coronary artery without angina pectoris (principal); I65.29 Occlusion and stenosis of unspecified carotid artery; I10 Essential (primary) hypertension; E78.5 Hyperlipidemia, unspecified
CPT/HCPCS: 78452; 93017; A9502

== ENCOUNTER 2020-01-21 12:45 | Outpatient (RCR) | payer MEDICARE, OTHER ==
[~2020-01-21 12:45] MED LIST changes: -CATHETER FLUSH 10 ML SYR IV PRN; -CYAN500T62 PO; +CYAN500T64 PO; -REGADENOSON 0.4 MG/5 ML SYR (LEXISCAN) IV ONE
== END 2020-02-23 15:30 | disposition home or self-care (01) ==
PROVIDERS: ATTEND Internal Medicine
DX: M54.2 Cervicalgia (principal); I11.9 Hypertensive heart disease without heart failure; E11.9 Type 2 diabetes mellitus without complications

== ENCOUNTER → 2020-04-09 | Outpatient (CLI) | payer MEDICARE, OTHER ==
[~2020-04-09] VITALS: Ht 71 cm; Wt 106.8 kg
[~2020-04-09] MED LIST changes: +BAMLANIVIMAB (NON FORM) 700 MG in NS (IVPB) 250 ML IV ONE; -CYAN500T64 PO; +CYAN500T8 PO; +EPINEPHrine INJECTION 1 MG/ML AMP IM PRN; +diphenhydrAMINE 50 MG/ML INJ (BENADRYL) IV PRN
[2020-04-09 12:03] VITALS: BP 184/88
[2020-04-09 14:00] VITALS: BP 175/89
== END ==
LOC: INFUSION 11:51
PROVIDERS: ATTEND Nurse Practitioner Family
DX: U07.1 COVID-19 (principal); I10 Essential (primary) hypertension; E11.9 Type 2 diabetes mellitus without complications; I25.10 Atherosclerotic heart disease of native coronary artery without angina pectoris

== ENCOUNTER → 2020-11-29 | Outpatient (CLI) | payer MEDICARE, OTHER ==
[~2020-11-29] MED LIST changes: -BAMLANIVIMAB (NON FORM) 700 MG in NS (IVPB) 250 ML IV ONE; -EPINEPHrine INJECTION 1 MG/ML AMP IM PRN; -diphenhydrAMINE 50 MG/ML INJ (BENADRYL) IV PRN
== END ==
LOC: CARD 11:30
PROVIDERS: ATTEND Internal Medicine Cardiovascular Disease
DX: I11.9 Hypertensive heart disease without heart failure (principal)
CPT/HCPCS: 93306

== ENCOUNTER 2021-03-09 05:36 | Outpatient (CLI) | payer MEDICARE, OTHER ==
[~2021-03-09] VITALS: Ht 177.8 cm; Wt 100.0 kg
[2021-03-10] MEDS ORDERED: METO100T12 PO (11:22)
[2021-03-10] MEDS ORDERED: DOXA2TAB2 PO (11:22)
[2021-03-10] MEDS ORDERED: ASPI-808 PO (11:22)
[2021-03-10] MEDS ORDERED: BUPR300T98 PO (11:22)
[2021-03-10] MEDS ORDERED: HYDR25TA4 PO (11:22)
[2021-03-10] MEDS ORDERED: POTA-51 PO (11:22)
[2021-03-10] MEDS ORDERED: METF-397 PO (11:22)
[2021-03-10] MEDS ORDERED: ATOR80TA76 PO (11:22)
[2021-03-10] MEDS ORDERED: NF-LT10/20 PO (11:22)
[2021-03-10] MEDS ORDERED: CHOL10007 PO (11:23)
== END 2021-03-10 11:26 | disposition home or self-care (01) ==
LOC: PREOP 05:36
PROVIDERS: ATTEND Specialist
DX: Z01.818 Encounter for other preprocedural examination (principal)

== ENCOUNTER 2021-03-18 07:18 | Day surgery (SDC) | payer MEDICARE, OTHER ==
[~2021-03-18] VITALS: Ht 177.8 cm; Wt 100.0 kg
[~2021-03-18 07:18] MED LIST changes: +ASPI-808 PO; +ATOR80TA76 PO; +BUPR300T98 PO; +CHOL10007 PO; +DOXA2TAB2 PO; +METF-397 PO; +METO100T12 PO; +NF-LT10/20 PO; +POTA-51 PO
[2021-03-18] MEDS ORDERED: LIDOCAINE PF 1% 2 ML VIAL IR PRN (07:30)
[2021-03-18] MEDS ORDERED: TIMOLOL MALEATE 0.5% 5 ML (TIMOPTIC) BTL OU PRN (07:30)
[2021-03-18] MEDS ORDERED: MOXIFLOXACIN OPHTH SOLN 5 MG/ML 0.3 ML SYRINGE OP ONE (07:30)
[2021-03-18] MEDS ORDERED: POVIDONE (BETADINE) OPHTH SOLN 5% 30 ML OP ONE (07:30)
[2021-03-18] MEDS: TETRACAINE 0.5% OPHTH SOLN 4 ML BTL (SINGLE DOSE ONLY) OU PRN ×4 (07:46→08:03)
[2021-03-18 07:50] VITALS: BP 165/77
[2021-03-18] MEDS: PHENYLEPHRINE 10% OPHTH (NEO-SYN) 5 ML BTL OU SCH ×3 (07:52→08:03)
[2021-03-18] MEDS: TROPICAMIDE 1% OPH SOLN (MYDRIACYL) 15 ML BTL OP SCH ×3 (07:53→08:03)
[2021-03-18] MEDS ORDERED: MIDAZOLAM 2 MG/2 ML (VERSED) VIAL ONE (08:32)
--- NOTE | 2021-03-18 08:48 | Ophthalmologist Pre-Op Note ---
Pre-Operative Progress Note H&P Reviewed The H&P was reviewed, patient examined and no changes noted. Date H&P Reviewed: Mar 18, 2021 Time H&P Reviewed: 08:11 Pre-Op Dx Cataract, Right Eye MILLER WHITE MD Mar 18, 2021 08:48
--- NOTE | 2021-03-18 08:49 | Ophthalmology Operative Report ---
Cataract removal/placement IOL PREOPERATIVE DIAGNOSIS: Cataract Right Eye POSTOPERATIVE DIAGNOSIS: Cataract Right Eye PROCEDURE: Cataract removal and placement of posterior chamber implant, right eye SURGEON: Keny White ANESTHESIA: Topical with sedation COMPLICATIONS: None ESTIMATED BLOOD LOSS: Minimal DESCRIPTION OF PROCEDURE: After proper informed consent was obtained, the patient, a 71 male, was taken to the Operating Room and the right eye was anesthetized with tetracaine. The right eye was then prepped and draped in the usual manner. A wire lid speculum was placed. A paracentesis was made at the left hand position. Preservative free lidocaine was injected into the anterior chamber followed by viscoelastic. A clear corneal incision was made in the temporal position. A capsulorrhexis was preformed and the central nuclear and cortical material were removed. The posterior capsule was polished and Alpesh 19.0 [id number] IOL was placed into the capsular bag. The residual viscoelastic was aspirated and balanced saline solution was injected into the anterior chamber. Moxifloxacin was injected into the anterior chamber. The wound was checked and found to be water tight. The patient tolerated the procedure well without complications. KENY WHITE MD Mar 18, 2021 08:49
[2021-03-18 08:53] VITALS: BP 139/63
[2021-03-18] MEDS ORDERED: acetaZOLAMIDE ER 500 MG CAP (DIAMOX SEQUELS) PO ONE (09:00)
--- NOTE | 2021-03-18 11:29 | Anesthesia-General Post-Op ---
MAC Patient Condition Mental Status/LOC: Same as Preop Cardiovascular: Satisfactory Nausea/Vomiting: Absent Respiratory: Satisfactory Pain: Controlled Complications: Absent Post Op Complications Complications None Follow Up Care/Instructions Patient Instructions None needed. Anesthesiology Discharge Order Discharge Order Patient is doing well, no complaints, stable vital signs, no apparent adverse anesthesia problems. No complications reported per nursing. DARVIN LOPEZ CRNA Mar 18, 2021 11:29
== END 2021-03-18 08:53 | disposition home or self-care (01) ==
LOC: SDC 07:18
PROVIDERS: ATTEND Specialist
DX: E11.36 Type 2 diabetes mellitus with diabetic cataract (principal); H25.9 Unspecified age-related cataract; I25.10 Atherosclerotic heart disease of native coronary artery without angina pectoris; I10 Essential (primary) hypertension; E66.9 Obesity, unspecified; Z87.891 Personal history of nicotine dependence; Z85.828 Personal history of other malignant neoplasm of skin; Z79.84 Long term (current) use of oral hypoglycemic drugs; Z79.899 Other long term (current) drug therapy; Z79.82 Long term (current) use of aspirin; Z68.31 Body mass index [BMI] 31.0-31.9, adult
CPT/HCPCS: 66984; V2632

== ENCOUNTER → 2021-03-23 | Outpatient (CLI) | payer MEDICARE, OTHER ==
--- NOTE | 2021-03-23 12:40 | Diagnostic Imaging Report ---
INDICATION: Left hip pain. TIME OF EXAM: 11:54 AM 2 views of the left hip demonstrate normal femoral acetabular alignment. Femoral head and neck are intact and no fractures are seen. IMPRESSION: No acute bony abnormality is detected. Dictated by: Dictated on workstation # [id number]
== END ==
LOC: RAD 11:07
PROVIDERS: ATTEND Internal Medicine
DX: M25.552 Pain in left hip (principal)
CPT/HCPCS: 73502

== ENCOUNTER → 2021-03-29 | Outpatient (CLI) | payer MEDICARE, OTHER | LOC: ORTHO 09:02 | PROVIDERS: ATTEND Orthopaedic Surgery | DX: M25.552 Pain in left hip (principal) | CPT/HCPCS: 99202 ==

== ENCOUNTER 2021-04-01 07:30 | Day surgery (SDC) | payer MEDICARE, OTHER ==
[~2021-04-01] VITALS: Ht 177.8 cm; Wt 100.0 kg
[2021-04-01] MEDS ORDERED: LIDOCAINE PF 1% 2 ML VIAL IR PRN (07:45)
[2021-04-01] MEDS ORDERED: MOXIFLOXACIN OPHTH SOLN 5 MG/ML 0.3 ML SYRINGE OP ONE (07:45)
[2021-04-01] MEDS ORDERED: TIMOLOL MALEATE 0.5% 5 ML (TIMOPTIC) BTL OU PRN (07:45)
[2021-04-01] MEDS ORDERED: POVIDONE (BETADINE) OPHTH SOLN 5% 30 ML OP ONE (07:45)
[2021-04-01] MEDS: TETRACAINE 0.5% OPHTH SOLN 4 ML BTL (SINGLE DOSE ONLY) OU PRN ×4 (07:56→08:20)
[2021-04-01 08:00] VITALS: BP 190/80
[2021-04-01] MEDS: PHENYLEPHRINE 10% OPHTH (NEO-SYN) 5 ML BTL OU SCH ×3 (08:06→08:20)
[2021-04-01] MEDS: TROPICAMIDE 1% OPH SOLN (MYDRIACYL) 15 ML BTL OP SCH ×3 (08:06→08:20)
[2021-04-01] MEDS ORDERED: MIDAZOLAM 2 MG/2 ML (VERSED) VIAL ONE (08:37)
--- NOTE | 2021-04-01 08:42 | Ophthalmologist Pre-Op Note ---
Pre-Operative Progress Note H&P Reviewed The H&P was reviewed, patient examined and no changes noted. Date H&P Reviewed: Apr 01, 2021 Time H&P Reviewed: 08:42 Pre-Op Dx Cataract, Left Eye MILLER WHITE MD Apr 01, 2021 08:42
[2021-04-01] MEDS ORDERED: acetaZOLAMIDE ER 500 MG CAP (DIAMOX SEQUELS) PO ONE (09:00)
--- NOTE | 2021-04-01 09:02 | Ophthalmology Operative Report ---
Cataract removal/placement IOL PREOPERATIVE DIAGNOSIS: Cataract Left Eye POSTOPERATIVE DIAGNOSIS: Cataract Left Eye PROCEDURE: Cataract removal and placement of posterior chamber implant, left eye SURGEON: Keny White ANESTHESIA: Topical with sedation COMPLICATIONS: None ESTIMATED BLOOD LOSS: Minimal DESCRIPTION OF PROCEDURE: After proper informed consent was obtained, the patient, a 71 male, was taken to the Operating Room and the left eye was anesthetized with tetracaine. The left eye was then prepped and draped in the usual manner. A wire lid speculum was placed. A paracentesis was made at the left hand position. Preservative free lidocaine was injected into the anterior chamber followed by viscoelastic. A clear corneal incision was made in the temporal position. A capsulorrhexis was preformed and the central nuclear and cortical material were removed. The posterior capsule was polished and an Alpesh 18.5 [id number] was placed into the capsular bag. The residual viscoelastic was aspirated and balanced saline solution was injected into the anterior chamber. Moxifloxacin was injected into the anterior chamber. The wound was checked and found to be water tight. The patient tolerated the procedure well without complications. KENY WHITE MD Apr 01, 2021 09:02
[2021-04-01 09:06] VITALS: BP 158/81
--- NOTE | 2021-04-01 10:48 | Anesthesia-General Post-Op ---
MAC Patient Condition Mental Status/LOC: Same as Preop Cardiovascular: Satisfactory Nausea/Vomiting: Absent Respiratory: Satisfactory Pain: Controlled Complications: Absent Post Op Complications Complications None Follow Up Care/Instructions Patient Instructions None needed. Anesthesiology Discharge Order Discharge Order Patient is doing well, no complaints, stable vital signs, no apparent adverse anesthesia problems. No complications reported per nursing. DARVIN LOPEZ CRNA Apr 01, 2021 10:48
== END 2021-04-01 09:07 | disposition home or self-care (01) ==
LOC: SDC 07:30
PROVIDERS: ATTEND Specialist
DX: E11.36 Type 2 diabetes mellitus with diabetic cataract (principal); H25.12 Age-related nuclear cataract, left eye; I10 Essential (primary) hypertension; I25.10 Atherosclerotic heart disease of native coronary artery without angina pectoris; E66.9 Obesity, unspecified; F32.A Depression, unspecified; M19.90 Unspecified osteoarthritis, unspecified site; F41.9 Anxiety disorder, unspecified; R09.81 Nasal congestion; Z79.899 Other long term (current) drug therapy; Z79.82 Long term (current) use of aspirin; Z79.84 Long term (current) use of oral hypoglycemic drugs; Z68.31 Body mass index [BMI] 31.0-31.9, adult; Z87.891 Personal history of nicotine dependence
CPT/HCPCS: 66984; V2632

== ENCOUNTER → 2021-04-08 | Outpatient (CLI) | payer MEDICARE, OTHER ==
--- NOTE | 2021-04-08 10:40 | Diagnostic Imaging Report ---
PROCEDURE: MRI left joint lower extremity without contrast. TECHNIQUE: Multiplanar, multisequence non contrast-enhanced MRI of the left lower extremity was accomplished. INDICATION: Left hip pain. No known injury COMPARISON: Radiograph from 03/23/2021 FINDINGS: No acute fracture is seen in the pelvis or the left hip. Alignment appears normal. There is no significant joint effusion. No ankylosis is seen in the sacroiliac joints although there is mild degenerative change present. No focal bony lesions are seen. There is at least moderate cartilage thinning in the left hip. No large subcortical cystlike changes are seen. No large full-thickness cartilage defects are appreciated. The labrum is suboptimally evaluated in the absence of intra-articular contrast, but no large tear or paralabral cyst is appreciated. The iliopsoas tendon demonstrates mild tendinopathy at the insertion. The gluteus medius and minimus tendons appear intact. The hamstring tendon origin appears normal. There is no iliopsoas or greater trochanteric bursitis. No masses or fluid collections are seen in the soft tissues. There is a small fat-containing left inguinal hernia. No free fluid is seen in the pelvis. There is no lymphadenopathy. IMPRESSION: 1. Cartilage loss and mild degenerative change in the left hip with no acute osseous abnormalities seen. 2. Tendinopathy of the distal left iliopsoas tendon near the insertion. No associated bursitis is seen. 3. Small fat-containing left inguinal hernia. Dictated by: Dictated on workstation # [id number]
== END ==
LOC: RAD 09:30
PROVIDERS: ATTEND Orthopaedic Surgery
DX: M16.12 Unilateral primary osteoarthritis, left hip (principal); K40.90 Unilateral inguinal hernia, without obstruction or gangrene, not specified as recurrent; M76.12 Psoas tendinitis, left hip; M24.152 Other articular cartilage disorders, left hip
CPT/HCPCS: 73721

== ENCOUNTER → 2022-06-19 | Outpatient (CLI) | payer MEDICARE, OTHER ==
--- NOTE | 2022-06-19 08:17 | Diagnostic Imaging Report ---
PROCEDURE: CT head without contrast. TECHNIQUE: Multiple contiguous axial images were obtained through the brain without the use of intravenous contrast. Auto Exposure Controls were utilized during the CT exam to meet ALARA standards for radiation dose reduction. INDICATION: Headache COMPARISON: None available FINDINGS: The paulson-white matter differentiation is preserved. No acute intracranial hemorrhage. No intracranial mass or fluid collection. The ventricles and cortical sulci are normal.. Mild nonspecific periventricular hypoattenuation. No Chiari malformation. The pituitary and sella are normal. Complete opacification of the left mastoid. The paranasal sinuses are clear. Mastoids are clear. The middle ear cavities are clear. IMPRESSION: No acute intracranial hemorrhage. No large vascular territory sanabria-white loss. No intracranial mass, midline shift, or hydrocephalus. Mild chronic small vessel ischemic disease. Left mastoid effusions. Dictated by: Dictated on workstation # [id number]
== END ==
LOC: RAD 07:45
PROVIDERS: ATTEND Internal Medicine
DX: R51.9 Headache, unspecified (principal)
CPT/HCPCS: 70450